=== PATIENT | female | born 1970 | race Caucasian/White ===

== ENCOUNTER 2016-12-27 16:28 | Emergency (ER) | payer OTHER ==
--- NOTE | ~2016-12-27 | CT4 ---
[facility] A Service of [facility] RADIOLOGY TEXT RESULTS PATIENT: MAX CORLEY LOCATION: SED : 72 UNIT #: [id number] AGE: [address]: EZEKIEL MARTI SEX: F ORDER DR: [id number] [address] [address] [id number] E MR#: [id number] Acc #: [id number] NAME: MAX CORLEY : 1970 SEX: F STUDY DATE/TIME: 12/27/2016 18:17 UNIT: SED ROOM: STUDY DESCRIPTION: CT Abd and Pelv Wo Cont Attending Physician: Ezekiel Marti Ordering Physician: Anthony Lawrence M.D. Primary Care Physician: Cr Whitfield M.D. MEDICAL IMAGING REPORT This report is preliminary unless electronic signature is present. EXAM CT scan of the abdomen and pelvis without contrast 12/27/2016 HISTORY Vomiting, diarrhea and cough beginning 1 day ago, chest congestion, fever, short of breath and wheezing. TECHNIQUE Spiral CT was performed through the abdomen and pelvis without oral or intravenous contrast administration as per clinician request. This CT examination was performed with one or more of the following radiation dose reduction techniques: automatic exposure control, adjustment of mA and/or kV according to patient size, and iterative reconstruction. FINDINGS ABDOMEN: The exam is limited by the lack of oral and intravenous contrast. The liver, spleen, pancreas, gallbladder and biliary tree, adrenal glands and kidneys are normal. PELVIS: The gut, mesenteric and gia structures are normal. There is no free fluid in the abdomen or pelvis. Images of the lung bases demonstrate patchy multifocal infiltrates in the left lower lobe characteristic of pneumonia. IMPRESSION 1. Left lower lobe pneumonia. 2. Otherwise negative noncontrast CT of the abdomen and pelvis. Exam is somewhat limited by the lack of oral and intravenous contrast. Dictated by... Ortiz Abbott M.D. [facility] A Service [facility] RADIOLOGY TEXT RESULTS PATIENT: MAX CORLEY LOCATION: SED : 71 UNIT #: [id number] AGE: [address]: EZEKIEL MARTI SEX: F ORDER DR: THIS IS AN ELECTRONICALLY VERIFIED REPORT Ortiz Abbott M.D. at 12/28/2016 2:55 PM PRANEETH/pelon TD: 12/28/2016 07:56 JOB #: [id number] MEDICAL IMAGING REPORT
--- NOTE | ~2016-12-27 | CR63 ---
[facility] A Service of [facility] RADIOLOGY TEXT RESULTS PATIENT: MAX CORLEY LOCATION: SED : 71 UNIT #: [id number] AGE: [address]: EZEKIEL MARTI SEX: F ORDER DR: [id number] [address] [address] [id number] E MR#: [id number] Acc #: [id number] NAME: MAX CORLEY : 1970 SEX: F STUDY DATE/TIME: 12/27/2016 18:06 UNIT: SED ROOM: STUDY DESCRIPTION: CR Chest 2 View Attending Physician: Ezekiel Marti Ordering Physician: Physician Non-Staff Primary Care Physician: Cr Whitfield M.D. MEDICAL IMAGING REPORT This report is preliminary unless electronic signature is present. EXAM Chest, PA and lateral, 12/27/2016. HISTORY Cough beginning 1 day ago, chest congestion, fever, short of breath, wheezing, vomiting, diarrhea. FINDINGS The heart is normal in size status post median sternotomy and valvular replacement. There is airspace consolidation in the lingula and left lower lobe characteristic of pneumonia. Lungs are otherwise clear. There are no pleural effusions. IMPRESSION Infiltrate in the lingula and left lower lobe characteristic of pneumonia. Dictated by... Ortiz Abbott M.D. THIS IS AN ELECTRONICALLY VERIFIED REPORT Ortiz Abbott M.D. at 12/28/2016 2:55 PM KRT/toshia TD: 12/28/2016 07:05 JOB #: [id number] MEDICAL IMAGING REPORT
[~2016-12-27 16:28] MED LIST: ALBUTEROL MININEB NEB; ALBUTEROL17 GM INH; ALBUTEROL2.5 MG/0.5 INH; ALDACTONE25 MG PO; AMBIEN10 MG PO; AMOXICILLIN500 M1 PO; ASPIRIN81 M2 PO; ASPIRIN81 MG PO; BACLOFEN10 MG PO; BACTRIM DS TABL1 TAB PO; BENZONATATE PO; BETAPACE120 M1 PO; BUSPAR15 M1 PO; BUSPAR15 M2 PO; CIPRO PO; CIPRO250 MG PO; CLARITIN10 M2 PO; COMBIVENT U/D3 M2 INH; COUMADIN2.5 MG PO; COUMADIN5 MG PO; EFFEXOR XR150 MG PO; EFFEXOR75 M1 PO; FLEXERIL PO; FLONASE 0.05% N16 G1; FLOVENT DI50 MCG/DIS INH; FUROSEMIDE40 MG PO; GABAPENTIN400 M2 PO; GABAPENTIN400 MG PO; GABAPENTIN800 MG PO; HYDRALAZINE HCL25 MG PO; HYDRALAZINE HCL50 MG PO; HYDROXYZINE HCL25 M1 PO; HYDROXYZINE HCL50 MG PO; IBUPROFEN IB200 M1 PO; IBUPROFEN600 MG PO; JANTOVEN2 MG PO; K-DUR10 MEQ PO; K-DUR20 ME1 PO; K-TAB ER20 MEQ PO; KETOPROFEN PO; LASIX PO; LASIX20 MG PO; LEVAQUIN PO; LISINOPRIL20 MG PO; LOMOTIL TABLET1 TAB PO; LOPRESSOR; LOPRESSOR PO; LORTAB 5/500 TA1 TA1 PO; LOVENOX SUBQ; MEDROL PO; METOPROLOL TAR100 MG PO; METOPROLOL TAR25 MG PO; MINIPRESS1 MG PO; NAPROXEN PO; NEURONTIN PO; NEURONTIN100 MG PO; NEURONTIN600 MG DOB; NO MEDICATIONS; NORCO1 TAB 10/3 DOB; PAIN & FEVER325 MG PO; PERCOCET 5-3251 TAB PO; PERCOCET 51 UDTAB 5/ PO; PHENERGAN PO; PHENERGAN12.5 MG/SU RC; PHENERGAN25 M1 PO; PHENERGAN25 MG PO; PRAZOSIN HCL1 GM PO; PREDNISONE PO; PREDNISONE10 MG PO; PROMETHAZINE D118 ML PO; PROTONIX PO; PROTONIX20 MG PO; PYRIDIUM PO; PYRIDIUM100 MG PO; ROBITUSSIN A-C S5 ML PO; SEROQUEL PO; SEROQUEL XR200 MG DOB; SEROQUEL XR200 MG PO; SEROQUEL50 MG DOB; SEROQUEL50 MG PO; SOTALOL AF80 M1 PO; SYMBICORT INH; ULTRAM PO; VIBRAMYCIN100 M1 PO; VICODIN 5/1 TAB 5/50 PO; VICODIN 5/500 T1 TAB PO; VISTARIL50 MG PO; VITAMIN D1000 UNIT PO; ZANTAC150 MG PO; ZESTRIL10 M1 PO; ZOFRAN PO; ZOLOFT PO; ZOLOFT100 MG PO
[2016-12-27 17:23] LABS: BASOPHIL# 0.1 X10e3 (0-0.3); BASOPHIL% 0.9 % (0-2.5); EOSINOPHIL# 0.6 X10e3 (0-0.7); EOSINOPHIL% 8.3 % (0.0-7.0); HEMATOCRIT 32.7 % (35.0-45.0); HEMOGLOBIN 11.2 gm/dL (12.0-16.0); LYMPHOCYTE# 2.1 X10e3 (1.0-3.5); LYMPHOCYTE% 29.4 % (17.0-45.0); MEAN CORPUSCULAR HEMOGLOBIN 32.5 PG (28-34); MEAN CORPUSCULAR HGB CONC 34.2 g/dL (30-36); MONOCYTE# 0.8 X10e3 (0-1.0); MONOCYTE% 10.6 % (3.0-12.0); NEUTROPHIL# 3.6 X10e3 (1.5-7.1); NEUTROPHIL% 50.8 % (40-75); PLATELET COUNT 261 X10e3 (140-420); RED BLOOD COUNT 3.45 X10e (3.90-5.30); RED CELL DISTRIBUTION WIDTH 15.5 % (11.0-15.5); WHITE BLOOD COUNT 7.1 X10e3 (4.0-10.5)
[2016-12-27 17:45] LABS: ALBUMIN SERUM 4.1 g/dL (3.5-5.0); ALKALINE PHOSPHATASE 95 U/L (32-92); ALT (SGPT) 19 U/L (10-40); AST (SGOT) 21 U/L (10-42); BILIRUBIN,TOTAL 0.3 mg/dL (0.2-2.0); BLOOD UREA NITROGEN 15 mg/dL (9-23); BUN/CREATININE RATIO 16.66; CARBON DIOXIDE 24 mmol/L (22-31); CHLORIDE 103 mmol/L (100-111); CREATININE SERUM 0.9 mg/dL (0.6-1.4); GLOM FILT RATE Estimated ABOVE60 mL/min (>60); GLUCOSE FASTING 93 mg/dL (70-110); LIPASE 29 U/L (22-51); POTASSIUM 3.6 mmol/L (3.5-5.1); PROTEIN TOTAL SERUM 7.2 g/dL (6.0-8.3); SODIUM 137 mmol/L (135-145)
[2016-12-27 17:48] LABS: INFLUENZA A NEG (NEG); INFLUENZA B NEG (NEG)
[2016-12-27 18:00] LABS: DIFF IND NO
[2016-12-27 18:01] LABS: URINE APPEARANCE CLEAR; URINE BILIRUBIN NEG (NEG); URINE BLOOD NEG (NEG); URINE COLOR YELLOW; URINE GLUCOSE NEG (NORM); URINE KETONE NEG (NEG); URINE LEUKOCYTE ESTERASE NEG (NEG); URINE NITRATE NEG (NEG); URINE PH 5.5 (5-8); URINE PROTEIN NEG (NEG); URINE SPECIFIC GRAVITY <=1.005 (1.003-1.035); URINE UROBILINOGEN 0.2 MG/DL (NORM)
[2016-12-27 18:39] LABS: MICRO INDICATED? NO; URINE SOURCE CLEAN CATCH
[2016-12-27 19:03] LABS: PROTHROMBIN TIME (PATIENT) 57.6 SECONDS (9.5-12.4)
== END 2016-12-27 20:24 | disposition home or self-care (01) ==
LOC: SED 16:28
PROVIDERS: Physician Assistant
DX: R10.32 Left lower quadrant pain (principal); J18.9 Pneumonia, unspecified organism; R11.2 Nausea with vomiting, unspecified; R19.7 Diarrhea, unspecified; R79.1 Abnormal coagulation profile; F41.9 Anxiety disorder, unspecified; F32.9 Major depressive disorder, single episode, unspecified; J45.909 Unspecified asthma, uncomplicated; I11.0 Hypertensive heart disease with heart failure; I50.9 Heart failure, unspecified; F17.210 Nicotine dependence, cigarettes, uncomplicated; Z98.51 Tubal ligation status
CPT/HCPCS: 36415; 71020; 74176; 80053; 81003; 83690; 84703; 85025; 85610; 87804; 94640; 96374; 96375; 99284; J0696; J2405

== ENCOUNTER → 2016-12-31 21:10 | Emergency (ER) | payer OTHER ==
[~2016-12-31 21:10] MED LIST changes: +ALBUTEROL 0.5ML INH; +DULERA 200 MCG/13 GM INH; +EFFEXOR75 M3 PO; +HYDROCODON-ACE1 EAC9 PO; +LEVAQUIN750 M1 PO; +LEVAQUIN750 MG PO; +LOVENOX80 MG/0.8 INJ; +MEDROL DOSEPAK4 MG PO; +NON-ASPIRIN 8650 MG PO; +NORVASC PO; +PATIENT'S PHARMACY
== END | disposition left against medical advice (07) ==
LOC: CED 21:10
DX: Z53.21 Procedure and treatment not carried out due to patient leaving prior to being seen by health care provider (principal)
CPT/HCPCS: 84703

== ENCOUNTER 2017-01-01 16:09 | Inpatient (IN) | payer OTHER ==
--- NOTE | ~2017-01-01 | HP ---
Unit #: [id number] #: [id number] Patient: MAX CORLEY [id number] [address] [place], [place] [address] [id number] I MR#: [id number] NAME: MAX CORLEY. ROOM: 312 Age: 46 Sex: F Admission Date: 01/01/2017 : 1970 Attending Physician: Christiano Villalobos M.D. Primary Care Physician: Cr Whitfield M.D. HISTORY AND PHYSICAL HISTORY OF PRESENT ILLNESS The patient is a 46-year-old white female with history of chronic anemia; atrial fibrillation; mitral valve replacement, tissue type; tricuspid regurgitation; left CVA, no residual, following evidence of a mitral valve clot; diastolic dysfunction; major depressive disorder; generalized anxiety disorder; hypertension; lupus anticoagulant antibody syndrome; history of polysubstance abuse; tobacco use. She was recently seen in the emergency room on 12/27/2016 at which time her labs were fairly unremarkable. Her hemoglobin was slightly low but chronic and stable. Beta HCG on the urine was negative. Influenza A and B were negative. Urinalysis was normal. PT/INR was elevated at 5.0. CT scan of the abdomen and pelvis was negative. Chest x-ray showed left lower lobe pneumonia. CMP was normal except for a slightly elevated alkaline phosphatase. The patient was sent home on Omnicef but did not improve. Her main complaint was shortness of air and cough. She presented back to the emergency room on 01/01/2017 for same. Workup there, she had a low grade temperature at 99.1. She was not tachycardic. Room air O2 saturation was 98%. Followup chest x-ray showed improving left upper lobe pneumonia. CBC again was normal except for a hemoglobin at 11.3. Cardiac enzymes were normal. Alkaline phosphatase 95. Coags were normal. EKG showed an ectopic atrial rhythm and a prolonged QT interval and she was admitted. She accidentally was admitted to the wrong physician overnight. I was notified after 10 a.m. this morning, already in the office seeing patients. Came back this evening to see the patient. She is already improving. She has been started on some IV fluids, IV Levaquin, IV Solu-Medrol, mini nebs, Lovenox because her INR was low. She was started back on her home medications which will be mentioned below and, again, she seems to be improving and is requesting discharge soon. PAST MEDICAL HISTORY 1. Chronic atrial fibrillation. 2. Mitral valve replacement. 3. Tricuspid regurgitation. 4. 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 5. Chronic anticoagulation therapy. 6. Diastolic dysfunction. 7. Major depressive disorder. 8. Generalized anxiety disorder. 9. Hypertension. 10. Polysubstance abuse in the past. 11. Lupus anticoagulant antibody syndrome. PAST SURGICAL HISTORY Unit #: [id number] #: [id number] Patient: MAX CORLEY 1. Tubal ligation. 2. Tissue mitral valve replacement. HOME MEDICATIONS 1. Coumadin 2.5 mg every other day. Followed by Dr. Alvarado, local media associate with widely fluctuating pro times according to the patient. 2. Lasix 20 mg daily. 3. K-Dur 10 mEq daily. 4. Neurontin 800 mg q.i.d. 5. Metoprolol tartrate 100 mg daily. 6. Seroquel XL 200 mg h.s. 7. Effexor 75 mg daily. ALLERGIES Amoxicillin. SOCIAL HISTORY She smokes 1-3 cigarettes daily. Drinks no alcohol. Currently uses no street drugs. FAMILY HISTORY Noncontributory. PHYSICAL EXAMINATION VITAL SIGNS: Afebrile since that 99.1 on admission, pulse 96, respirations 18, blood pressure 116/59, room air O2 saturation currently 96%. GENERAL: She is awake, alert, oriented x3. No acute distress. HEENT: Unremarkable. NECK: Supple without JVD, bruits, adenopathy, or thyromegaly. LUNGS: Decreased breath sounds. Rhonchi left upper lobe area. Expiratory wheezes. HEART: Irregularly irregular without an S3 gallop or murmur appreciated. ABDOMEN: Large, soft, nondistended, nontender with positive bowel sounds and no hepatosplenomegaly. EXTREMITIES: No clubbing, cyanosis, or edema. GENITOURINARY: Deferred. RECTAL: Deferred. NEUROLOGIC: Grossly intact. DIAGNOSTIC STUDIES LABORATORY: CBC normal except for hemoglobin of 11.3 with normal indices. Cardiac enzymes normal. CMP normal except for an alkaline phosphatase of 95. PT and PTT within normal limits. IMAGING: Chest x-ray, as above, improving left upper lobe pneumonia. CARDIOVASCULAR: EKG ectopic atrial rhythm, prolonged QT interval. IMPRESSION 1. Improving left upper lobe community-acquired pneumonia. 2. Subtherapeutic pro time. 3. Status post tissue mitral valve replacement. 4. Severe tricuspid regurgitation. 5. History of mitral valve thrombus with left cerebrovascular accident with no residual. 6. Chronic atrial fibrillation. Unit #: [id number] #: [id number] Patient: MAX CORLEY 7. Diastolic dysfunction. 8. Hypertension. 9. Tobacco use. 10. Chronic anemia. 11. Generalized anxiety disorder. 12. Major depressive disorder. PLAN 1. Continue IV Levaquin, IV steroids, Lovenox. 2. Daily pro times. 3. Mini nebs. Hopefully she can be discharged home soon on p.o. antibiotics, p.o. steroids and possibly with Lovenox bridging because of her subtherapeutic pro time particularly given her history of the left CVA related to the mitral valve thrombus and her history of lupus anticoagulant antibody syndrome. Dictated by Christiano Villalobos M.D. STEVIE/dale TD: 01/02/2017 16:48 JOB #: [id number] HISTORY AND PHYSICAL X Christiano Villalobos MD HISTORY AND PHYSICAL
--- NOTE | ~2017-01-01 | DS ---
Unit #: [id number] #: [id number] Patient: MAX CORLEY [id number] [address] [address] [id number] I MR#: [id number] NAME: MAX CORLEY. ROOM: 312 Age: 46 Sex: F Admission Date: 01/01/2017 : 1970 Discharge Date: 01/03/2017 Attending Physician: Christiano Villalobos M.D. Primary Care Physician: Cr Whitfield M.D. DISCHARGE SUMMARY PRINCIPAL DISCHARGE DIAGNOSES 1. Left upper lobe community-acquired pneumonia. 2. Subtherapeutic pro time. 3. Status post tissue mitral valve replacement. 4. Paroxysmal atrial fibrillation. 5. Severe tricuspid regurgitation. 6. Diastolic dysfunction. 7. Hypertension. 8. Lupus anticoagulant antibody syndrome. 9. Tobacco abuse. 10. Chronic anemia. 11. Status post left cerebrovascular accident. 12. Major depressive disorder. 13. Generalized anxiety disorder. PROCEDURES None. CONSULTANTS None. REASON FOR HOSPITALIZATION The patient is a 46-year-old white female with a history of mitral valve replacement, tissue type, chronic anticoagulation therapy, lupus anticoagulant antibody syndrome, tobacco use, major depressive disorder, old CVA on the left without any residual, chronic anemia, presented to the emergency room on the with cough, congestion, fever. She was seen at that time. Flu swab was negative. White count was normal. Chest x-ray revealed an infiltrate in the left lower lobe. She was started on Omnicef, but re-presented on the due to cough, stating she was no better. In the ER, she was afebrile. Vital signs were stable. Room air O2 saturation was 98%. She was given Solu-Medrol, IV Levaquin and admitted. The patient is rapidly improving while here. Her room air O2 sats were normal. Her vital signs were stable. She has no significant cough at this point, and just with a brief period of IV steroids and mini nebs, she has markedly improved, requesting discharge. Her pro time was still pending this morning, yesterday was subtherapeutic and she was given an additional dose. She has used Lovenox in the past and is given a prescription in case she needs it today. Following her pro time results, she will be discharged home. She has albuterol nebulizer at home that she will use q.i.d. Given her a prescription for Levaquin 750 mg daily for an additional 8 days. Medrol Dosepak use as directed. She will resume her home medicines otherwise, Coumadin 2.5 mg every other day, Neurontin Unit #: [id number] #: [id number] Patient: FLUHR,MAX M 800 mg q.i.d., Effexor 75 mg daily, Seroquel XR 200 mg q.h.s., Lopressor 100 mg daily, Lasix 20 mg daily, K-Dur 10 mEq daily. Again, she is given a prescription for Lovenox 80 mg subcu q.12 hours if her pro time is less than 2. She will follow up with Dr. Whitfield in the office. She will need to have a pro time in about [address] Alvarado, her icer hand, with adjustments made at that time. She is encouraged to discontinue her tobacco use. She will be on a regular diet as tolerated. Dictated by... Christiano Villalobos M.D. STEVIE/maurice TD: 01/04/2017 02:38 JOB #: [id number] DISCHARGE SUMMARY X Christiano Villaolbos MD X DISCHARGE SUMMARY
--- NOTE | ~2017-01-01 | CR72 ---
[facility] A Service of [facility] RADIOLOGY TEXT RESULTS PATIENT: MAX CORLEY LOCATION: [facility] : [birth year] UNIT #: [id number] AGE: [address]: Shirin Parra MD SEX: F ORDER DR: [id number] [facility] [address]. [place], [place] [address] [id number] I MR#: [id number] Acc #: [id number] NAME: MAX CORLEY. : 1970 SEX: F STUDY DATE/TIME: 01/01/2017 15:45 UNIT: [address] ROOM: [facility] STUDY DESCRIPTION: CR Chest Single View Portable Attending Physician: Shirin Parra M.D. Ordering Physician: Memo Beatty M.D. Primary Care Physician: Cr Whitfield M.D. MEDICAL IMAGING REPORT This report is preliminary unless electronic signature is present EXAM Frontal chest 01/01/2017 INDICATIONS 46-year-old female with shortness of air. Recent pneumonia, cough symptoms 5 days. TECHNIQUE Frontal chest was performed. COMPARISON 12/27/2016 FINDINGS Postop changes median sternotomy present. Cardiac silhouette stable. Vascularity is normal. Right lung is clear. There is partial obscuration of the left heart border most characteristic of lingular pneumonia. Findings are slightly improved compared to the prior study. No pneumothorax. No effusion. IMPRESSION Slight interval improvement in pneumonia involving the lingular segment left upper lobe and to a lesser extent the left lower lobe. No new effusion or other significant change. Dictated by... Jakub Faustin M.D. THIS IS AN ELECTRONICALLY VERIFIED REPORT Jakub Faustin M.D. at 01/02/2017 7:27 AM Aris TD: 01/02/2017 06:19 [facility] A Service [facility] RADIOLOGY TEXT RESULTS PATIENT: MAX CORLEY LOCATION: [facility] : [birth year] UNIT #: [id number] AGE: [address]: Shirin Parra MD SEX: F ORDER DR: JOB #: [id number] MEDICAL IMAGING REPORT COPY
--- NOTE | ~2017-01-01 | EKG ---
PATIENT: MAX CORLEY UNIT #: [id number] Ventricular Rate: 90 BPM Atrial Rate: 90 BPM P-R Interval: 244 ms QRS Duration: 80 ms Q-T Interval: 394 ms QTC Calculation(Bezet): 481 ms P [place]: -79 degrees Calculated R [place]: 52 degrees Calculated T [place]: 52 degrees Diagnosis Line: Unusual P axis, possible ectopic atrial rhythm Diagnosis Line: Prolonged QT Diagnosis Line: Abnormal ECG Diagnosis Line: When compared with ECG of 20-SEP-2016 08:54, Diagnosis Line: Ectopic atrial rhythm has replaced Sinus rhythm Diagnosis Line: Nonspecific T wave abnormality no longer evident Diagnosis Line: in Lateral leads Diagnosis Line: Confirmed by JIGNA HORAN MD ([id number]) on Diagnosis Line: 01/02/2017 11:24:46 AM INTERPRETING MD: AUNG HAMILTON
[~2017-01-01 16:09] MED LIST changes: -ALBUTEROL 0.5ML INH; -DULERA 200 MCG/13 GM INH; -EFFEXOR75 M3 PO; -HYDROCODON-ACE1 EAC9 PO; -LEVAQUIN750 M1 PO; -LEVAQUIN750 MG PO; -LOVENOX80 MG/0.8 INJ; -MEDROL DOSEPAK4 MG PO; -NON-ASPIRIN 8650 MG PO; -NORVASC PO; -PATIENT'S PHARMACY
[2017-01-01 16:16] LABS: BASOPHIL# 0.1 X10e3 (0-0.3); BASOPHIL% 0.8 % (0-2.5); EOSINOPHIL# 0.8 X10e3 (0-0.7); EOSINOPHIL% 7.9 % (0.0-7.0); HEMATOCRIT 33.5 % (35.0-45.0); HEMOGLOBIN 11.3 gm/dL (12.0-16.0); LYMPHOCYTE# 2.2 X10e3 (1.0-3.5); LYMPHOCYTE% 23.2 % (17.0-45.0); MEAN CELL VOLUME 94.9 FL (83-96); MEAN CORPUSCULAR HEMOGLOBIN 31.9 PG (28-34); MEAN CORPUSCULAR HGB CONC 33.7 g/dL (30-36); MEAN PLATELET VOLUME 6.9 FL (6.5-11.5); MONOCYTE# 0.9 X10e3 (0-1.0); MONOCYTE% 9.7 % (3.0-12.0); NEUTROPHIL# 5.6 X10e3 (1.5-7.1); NEUTROPHIL% 58.4 % (40-75); PLATELET COUNT 333 X10e3 (140-420); RED BLOOD COUNT 3.53 X10e (3.90-5.30); RED CELL DISTRIBUTION WIDTH 15.3 % (11.0-15.5); WHITE BLOOD COUNT 9.5 X10e3 (4.0-10.5)
[2017-01-01 16:17] LABS: DIFF IND NO
[2017-01-01 16:22] LABS: POC - CKMB <1.0 ng/mL (0.0-7.9); POC - TROPONIN <0.05 ng/mL (<=0.05)
[2017-01-01 16:53] LABS: ALBUMIN SERUM 3.9 g/dL (3.5-5.0); ALKALINE PHOSPHATASE 95 U/L (32-92); ALT (SGPT) 15 U/L (10-40); AST (SGOT) 18 U/L (10-42); BILIRUBIN,TOTAL 0.5 mg/dL (0.2-2.0); BLOOD UREA NITROGEN 12 mg/dL (9-23); CARBON DIOXIDE 29 mmol/L (22-31); CHLORIDE 101 mmol/L (100-111); CREATININE SERUM 0.6 mg/dL (0.6-1.4); GLOM FILT RATE Estimated ABOVE60 mL/min (>60); GLUCOSE FASTING 92 mg/dL (70-110); POTASSIUM 3.5 mmol/L (3.5-5.1); PROTEIN TOTAL SERUM 6.9 g/dL (6.0-8.3); SODIUM 140 mmol/L (135-145)
[2017-01-01 16:54] LABS: BILIRUBIN, DIRECT <0.1 mg/dL (0.0-0.2); BILIRUBIN,INDIRECT 0.4 mg/dL (0.0-0.9); PARTIAL THROMBOPLASTIN TIME 30.1 SECONDS (23.5-31.3)
[2017-01-01 16:58] LABS: PROTHROMBIN TIME (PATIENT) 10.9 SECONDS (9.6-11.5)
[2017-01-01] MEDS ORDERED: METOPROLOL TAR100 MG PO (17:07)
[2017-01-01] MEDS ORDERED: SEROQUEL XR200 MG PO (17:08)
[2017-01-01] MEDS ORDERED: EFFEXOR75 M3 PO (17:13)
[2017-01-02 09:14] LABS: INR 1.1; PROTHROMBIN TIME (PATIENT) 11.4 SECONDS (9.6-11.5)
[2017-01-03 09:47] LABS: INR 1.3; PROTHROMBIN TIME (PATIENT) 14.2 SECONDS (9.6-11.5)
[2017-01-03] MEDS ORDERED: LOVENOX80 MG/0.8 INJ (10:39)
[2017-01-03] MEDS ORDERED: LEVAQUIN750 M1 PO (10:40)
[2017-01-03] MEDS ORDERED: ALBUTEROL 0.5ML INH (10:40)
[2017-01-03] MEDS ORDERED: MEDROL DOSEPAK4 MG PO (10:40)
== END 2017-01-03 11:22 | disposition home or self-care (01) | DRG 194 ==
LOC: CED 16:09 → CEDOF 17:35 → C3A PCU 19:46
PROVIDERS: Emergency Medicine; Internal Medicine; Physician Assistant Medical
DX: J18.9 Pneumonia, unspecified organism (principal); I50.30 Unspecified diastolic (congestive) heart failure; D68.62 Lupus anticoagulant syndrome; I11.0 Hypertensive heart disease with heart failure; I48.0 Paroxysmal atrial fibrillation; I36.1 Nonrheumatic tricuspid (valve) insufficiency; F17.210 Nicotine dependence, cigarettes, uncomplicated; Z79.01 Long term (current) use of anticoagulants; Z95.3 Presence of xenogenic heart valve; D53.9 Nutritional anemia, unspecified; F32.9 Major depressive disorder, single episode, unspecified; F41.1 Generalized anxiety disorder; Z86.73 Personal history of transient ischemic attack (TIA), and cerebral infarction without residual deficits; Z98.51 Tubal ligation status
CPT/HCPCS: 36415; 71010; 80048; 80076; 82553; 84484; 85025; 85610; 85730; 87040; 93005; 94640; 94760; 96374; 96375; 99285; J1650; J1885; J1956; J2765; J2920; J2930

== ENCOUNTER 2017-01-26 19:00 | Emergency (ER) | payer OTHER ==
--- NOTE | ~2017-01-26 | US85 ---
[facility] A Service of [facility] RADIOLOGY TEXT RESULTS PATIENT: MAX CORLEY LOCATION: [facility] : 71 UNIT #: [id number] AGE: [address]: Jose Dior MD SEX: F ORDER DR: [id number] [facility] [address] [place], [place] [address] [id number] E MR#: [id number] Acc #: [id number] NAME: MAX CORLEY. : 1970 SEX: F STUDY DATE/TIME: 01/26/2017 19:34 UNIT: [facility] ROOM: STUDY DESCRIPTION: LE Veins Unilat or Ltd Stdy Attending Physician: Jose Dior M.D. Ordering Physician: Jimmy Wyman M.D. Primary Care Physician: Cr Whitfield M.D. MEDICAL IMAGING REPORT This report is preliminary unless electronic signature is present EXAM Right lower extremity venous duplex. DATE OF EXAM 01/26/2017 HISTORY Right lower extremity pain for 1 day. Evaluate for deep vein thrombosis. TECHNIQUE Venous ultrasound examination of the right lower extremity was performed using grayscale, spectral Doppler and color flow Doppler imaging. FINDINGS The examination is negative. There is no evidence of right lower extremity deep venous thrombus from the groin to the lower calf. Visualized greater saphenous vein is also patent. IMPRESSION Negative examination. No evidence of right lower extremity DVT. Dictated by... Ortiz Abbott M.D. THIS IS AN ELECTRONICALLY VERIFIED REPORT Ortiz Abbott M.D. at 01/27/2017 1:14 PM KRT/bre TD: 01/26/2017 23:01 [facility] A Service of [facility] RADIOLOGY TEXT RESULTS PATIENT: MAX CORLEY LOCATION: [facility] : 71 UNIT #: [id number] AGE: [address]: Jose Dior MD SEX: F ORDER DR: JOB #: [id number] MEDICAL IMAGING REPORT Page 1 of 1 COPY
--- NOTE | ~2017-01-26 | CR127 ---
[facility] A Service of [facility] RADIOLOGY TEXT RESULTS PATIENT: MAX CORLEY LOCATION: [facility] : [birth year] UNIT #: [id number] AGE: [address]: Jose Dior MD SEX: F ORDER DR: [id number] [facility] [address] [place], [place] [address] [id number] E MR#: [id number] Acc #: [id number] NAME: MAX CORLEY : 1970 SEX: F STUDY DATE/TIME: 01/26/2017 19:14 UNIT: [facility] ROOM: STUDY DESCRIPTION: CR Foot Complete Min 3 View Rt Attending Physician: Jose Dior M.D. Ordering Physician: Jose Dior M.D. Primary Care Physician: Cr Whitfield M.D. MEDICAL IMAGING REPORT This report is preliminary unless electronic signature is present EXAM Right foot 3 views 01/26/2017 HISTORY Right foot pain status post fall today. FINDINGS The tarsal, metatarsal, and phalangeal elements are all anatomically normal in position and alignment. There are no articular defects. No fractures or radiopaque foreign bodies in the soft tissues are apparent. IMPRESSION Normal foot. Dictated by... Ortiz Abbott M.D. THIS IS AN ELECTRONICALLY VERIFIED REPORT Ortiz Abbott M.D. at 01/27/2017 1:14 PM KRT/norris TD: 01/26/2017 23:02 JOB #: [id number] MEDICAL IMAGING REPORT Page 1 of 1 COPY
--- NOTE | ~2017-01-26 | CR253 ---
[facility] A Service of [facility] RADIOLOGY TEXT RESULTS PATIENT: MAX CORLEY LOCATION: [facility] : 72 UNIT #: [id number] AGE: [address]: Jose Dior MD SEX: F ORDER DR: [id number] [facility] [address] [place], [place] [address] [id number] E MR#: [id number] Acc #: [id number] NAME: MAX CORLEY. : 1970 SEX: F STUDY DATE/TIME: 01/26/2017 19:21 UNIT: [facility] ROOM: STUDY DESCRIPTION: CR Tibia and Fibula 2 Views Rt Attending Physician: Jose Dior M.D. Ordering Physician: Jose Dior M.D. Primary Care Physician: Cr Whitfield M.D. MEDICAL IMAGING REPORT This report is preliminary unless electronic signature is present EXAM Right tibia-fibula AP and lateral HISTORY Leg pain after fall today. FINDINGS 2 views of the right tibia and fibula demonstrate oblique fracture through the proximal right fibular shaft centered 6 cm distal to the fibular head with 3 mm relative anterior displacement of the distal fracture fragment. No significant fracture angulation. There is also a nondisplaced coronal fracture through the posterior malleolus. Soft tissue swelling over the lateral malleolus. Dictated by... Jaun Galvan M.D. THIS IS AN ELECTRONICALLY VERIFIED REPORT Jaun Galvan M.D. at 01/26/2017 11:26 PM DFL/norris TD: 01/26/2017 23:06 JOB #: [id number] MEDICAL IMAGING REPORT Page 1 of 1 COPY
[~2017-01-26 19:00] MED LIST changes: +ALBUTEROL 0.5ML INH; +EFFEXOR75 M3 PO; +LEVAQUIN750 M1 PO; +LOVENOX80 MG/0.8 INJ; +MEDROL DOSEPAK4 MG PO
[2017-01-26 20:39] LABS: BASOPHIL# 0.1 X10e3 (0-0.3); BASOPHIL% 0.9 % (0-2.5); EOSINOPHIL# 0.4 X10e3 (0-0.7); EOSINOPHIL% 3.7 % (0.0-7.0); HEMATOCRIT 37.8 % (35.0-45.0); HEMOGLOBIN 12.7 gm/dL (12.0-16.0); LYMPHOCYTE# 2.5 X10e3 (1.0-3.5); LYMPHOCYTE% 24.6 % (17.0-45.0); MEAN CELL VOLUME 94.7 FL (83-96); MEAN CORPUSCULAR HEMOGLOBIN 31.8 PG (28-34); MEAN CORPUSCULAR HGB CONC 33.5 g/dL (30-36); MONOCYTE# 1.1 X10e3 (0-1.0); MONOCYTE% 11.1 % (3.0-12.0); NEUTROPHIL% 59.7 % (40-75); PLATELET COUNT 298 X10e3 (140-420)
[2017-01-26 20:40] LABS: DIFF IND NO
[2017-01-26 20:58] LABS: INR 1.3; PARTIAL THROMBOPLASTIN TIME 35.3 SECONDS (23.5-31.3)
[2017-01-26 21:04] LABS: BUN/CREATININE RATIO 17.5; CALCIUM SERUM 9.5 mg/dL (8.4-10.2); CREATININE SERUM 0.8 mg/dL (0.6-1.4); GLOM FILT RATE Estimated 89.1 mL/min (>60); POTASSIUM 3.5 mmol/L (3.5-5.1)
== END 2017-01-26 21:29 | disposition home or self-care (01) ==
LOC: CED 19:00
PROVIDERS: Emergency Medicine
DX: M79.661 Pain in right lower leg (principal); Z86.718 Personal history of other venous thrombosis and embolism; F17.200 Nicotine dependence, unspecified, uncomplicated; Z79.01 Long term (current) use of anticoagulants; Z88.1 Allergy status to other antibiotic agents
CPT/HCPCS: 29505; 73590; 73630; 80048; 85025; 85610; 85730; 93971; 99284

== ENCOUNTER 2017-03-22 09:24 | Inpatient (IN) | payer OTHER ==
--- NOTE | ~2017-03-22 | EKG ---
PATIENT: MAX CORLEY UNIT #: [id number] Ventricular Rate: 128 BPM Atrial Rate: 128 BPM P-R Interval: 224 ms QRS Duration: 80 ms Q-T Interval: 292 ms QTC Calculation(Bezet): 426 ms Calculated R [place]: 40 degrees Calculated T [place]: -86 degrees Diagnosis Line: Unusual P axis, possible ectopic atrial Diagnosis Line: tachycardia Diagnosis Line: ST and T wave abnormality, consider lateral ischemia Diagnosis Line: Abnormal ECG Diagnosis Line: When compared with ECG of 01-JAN-2017 15:39, Diagnosis Line: ST now depressed in Inferior leads Diagnosis Line: T wave inversion now evident in Inferior leads Diagnosis Line: T wave inversion now evident in Lateral leads Diagnosis Line: Confirmed by RAVEN GARCIA MD ([id number]) on Diagnosis Line: 03/23/2017 1:40:13 PM INTERPRETING MD: BLACK
--- NOTE | ~2017-03-22 | CT16 ---
[facility] A Service of [facility] RADIOLOGY TEXT RESULTS PATIENT: MAX CORLEY LOCATION: [facility] [id number] : 71 UNIT #: [id number] AGE: [address]: Christiano Villalobos MD SEX: F ORDER DR: [id number] [facility] [address] [place], [place] [address] [id number] I MR#: [id number] Acc #: [id number] NAME: MAX CORLEY. : 1970 SEX: F STUDY DATE/TIME: 03/22/2017 12:08 UNIT: [facility] ROOM: [id number] STUDY DESCRIPTION: CT Angio Chest for PE Attending Physician: Christiano Villalobos M.D. Ordering Physician: Ashok Salinas M.D. Primary Care Physician: Cr Whitfield M.D. MEDICAL IMAGING REPORT This report is preliminary unless electronic signature is present EXAM CT scan of the chest with pulmonary embolus protocol INDICATION Cough, congestion, shortness of air for 3 days. COMPARISON STUDIES 10/10/2015 TECHNIQUE The patient was given 80 mL of Isovue 370 and spiral imaging was performed through the chest. 3-D reconstructions of the pulmonary arteries were generated. This CT exam was performed with one or more of the following radiation dose reduction techniques: automatic exposure control, adjustment of mA and/or kV according to patient size, and iterative reconstruction. FINDINGS There are small patchy ground glass infiltrates at multiple sites in the upper lobes. These measure up to about 18 mm in the AP dimension, 3 cm in width. There are at least 10 areas involved. There is minimal atelectasis in the lung bases and the right middle lobe. Almost all of these are new from 2015. The thyroid gland is normal. There is mild narrowing of the brachiocephalic artery near its origin with about a 50% narrowing and there is mild narrowing of the proximal left subclavian artery as well. It is difficult to tell if these findings were present 10/10/2015 because of some motion in this region but I believe that the narrowing's are new. There is adequate opacification of the pulmonary arteries and there is no CT evidence of pulmonary embolus. Sternotomy wires are present. There is no mediastinal or hilar adenopathy. [facility] A Service of [facility] RADIOLOGY TEXT RESULTS PATIENT: MAX CORLEY LOCATION: [facility] [id number] : [birth year] UNIT #: [id number] AGE: [address]: Christiano Villalobos MD SEX: F ORDER DR: IMPRESSION 1. There are multiple faint patchy ground glass infiltrates in the upper lobes almost all of which are new from 10/10/2015 suggesting some type of allergic response or inflammation or infection. 2. There is no CT evidence of pulmonary embolus or aortic dissection. 3. On today's study there is clearly some circumferential narrowing of the proximal portions of the brachiocephalic artery and left subclavian artery causing up to a 50% diameter stenosis of the brachiocephalic artery and subclavian artery and this appears to be new from 10/10/2015 although there was some motion on that study. 4. The patient also has a CT scan from 07/02/2015 and that showed multiple ground glass infiltrates of more extensive nature. The vascular narrowing was not visible on that exam, either. Dictated by... Markus Mei M.D. THIS IS AN ELECTRONICALLY VERIFIED REPORT Markus Mei M.D. at 03/22/2017 5:02 PM Ron TD: 03/22/2017 16:28 JOB #: [id number] MEDICAL IMAGING REPORT Page 1 of 1 COPY
--- NOTE | ~2017-03-22 | DS ---
Unit #: [id number] #: [id number] Patient: MAX CORLEY [id number] [address] [address] [id number] I MR#: [id number] NAME: MAX CORLEY. ROOM: 575 Age: 46 Sex: F Admission Date: 03/22/2017 : 1970 Discharge Date: 03/26/2017 Attending Physician: Christiano Villalobos M.D. Primary Care Physician: Cr Whitfield M.D. DISCHARGE SUMMARY PRINCIPAL DISCHARGE DIAGNOSES 1. Bilateral upper lobe community acquired pneumonia. 2. Tobacco use. 3. Status post mitral valve replacement tissue type. 4. Lupus anticoagulant antibody syndrome. 5. Subtherapeutic ProTime. 6. Major depressive disorder. 7. Generalized anxiety disorder. 8. Paroxysmal atrial fibrillation. 9. Renal insufficiency. 10. Hyperglycemia. 11. Right foot fracture. 12. Polysubstance abuse. 13. Tricuspid regurgitation. 14. Old left cerebrovascular accident. PROCEDURES None. CONSULTANTS Dr. Rodriguez from pulmonary services. REASON FOR HOSPITALIZATION Patient is a 46-year-old white female with a history of tissue mitral valve replacement, lupus anticoagulant antibody syndrome, chronic anticoagulation therapy, tobacco use, major depressive disorder, generalized anxiety disorder, recent fracture of right foot, presents in the emergency room with three days of cough, shortness of air and congestion, abnormal, and normal white count. Chest x-ray negative. CT scan PE protocol showed no PE but bilateral upper lobe infiltrates and the patient was admitted. HOSPITAL COURSE The patient was admitted and she was started on Lovenox. Because her ProTime was subtherapeutic she was started on Levaquin. Additional labs were sent. On admission her lactic acid was normal. GFR was 54. Lasix was held. Urine drug screen was positive for marijuana, opiates and TCAs. Procalcitonin was 1.64. Urine for Legionella and Streptococcal antigens were negative. Patient rapidly improved. Blood cultures were negative. Urinalysis showed 1% blood but CPK was normal and culture not reported. Because hyperglycemic treated with sliding scale insulin and A1c was borderline at 6.0%. Followup chest x-ray showed no active disease. Protimes are still subtherapeutic, this morning's is pending and we checked prior to discharge but the patient is in a regular rhythm and can Unit #: [id number] #: [id number] Patient: MAX CORLEY be discharged home with outpatient followup. She is currently on a regular diet as tolerated. DISCHARGE MEDICATIONS 1. She is on potassium 20 mEq daily. 2. [place] 7.5/325 one q.8 hours p.r.n. for pain. 3. Zantac 150 mg b.i.d. 4. Lasix 20 mg daily. 5. Metoprolol 100 mg b.i.d. 6. Hydroxyzine 50 mg t.i.d. 7. Seroquel XR 200 mg p.o. q.h.s. 8. Effexor 75 mg daily. 9. Neurontin 600 mg t.i.d. 10. Coumadin 2.5 mg daily. 11. She was given a prescription for Combivent Respimat 1 puff q.i.d. p.r.n. 12. Prednisone 40 mg for two days, 30 mg for two days, 10 mg for two days, and then discontinue. 13. Tylenol 650 p.o. q.6 p.r.n. 14. Dulera 200/5 two puffs q.12. 15. Norvasc 5 mg p.o. daily. 16. Levaquin 750 mg p.o. daily for an additional 6 days. FOLLOWUP Please note, she will followup with Dr. Whitfield in one week with a ProTime. Dictated by... Christiano Villaolbos M.D. STEVIE/kimberly TD: 03/26/2017 12:50 JOB #: [id number] DISCHARGE SUMMARY Page 1 of 1 X Christiano Villalobos MD X DISCHARGE SUMMARY
--- NOTE | ~2017-03-22 | CR63 ---
[facility] A Service of [facility] & [facility] RADIOLOGY TEXT RESULTS PATIENT: MAX CORLEY LOCATION: [facility] 575-01 : [birth year] UNIT #: [id number] AGE: [address]: Christiano Villalobos MD SEX: F ORDER DR: [id number] [facility] [address] [place], [place] [address] [id number] I MR#: [id number] Acc #: [id number] NAME: MAX CORLEY : 1970 SEX: F STUDY DATE/TIME: 03/25/2017 UNIT: [facility] ROOM: [facility] STUDY DESCRIPTION: CR Chest 2 View Attending Physician: Christiano Villalobos M.D. Ordering Physician: Christiano Villalobos M.D. Primary Care Physician: Cr Whitfield M.D. MEDICAL IMAGING REPORT This report is preliminary unless electronic signature is present EXAM Chest 2 views 03/25/2017 0842 hours HISTORY 46-year-old woman with cough, wheezing and shortness of air for [address] chest and portable chest film 03/22/2017 FINDINGS Upright PA and lateral views of the chest demonstrate median sternotomy change with valve replacement. Cardiac, mediastinal and hilar contours are normal. Lungs appear clear. There are no effusions. Ground-glass opacities seen on CT 03/22/2017 are not detectable on plain film. IMPRESSION Median sternotomy and valve surgical changes. No acute cardiopulmonary findings. The ground-glass opacities seen on recent CT 03/22/2017 are not detected on plain film. Dictated by... Soumya Jesus M.D. THIS IS AN ELECTRONICALLY VERIFIED REPORT Soumya Jesus M.D. at 03/25/2017 2:29 PM SMM/paulo TD: 03/25/2017 10:56 JOB #: [id number] MEDICAL IMAGING REPORT Page 1 of 1 COPY
--- NOTE | ~2017-03-22 | HP ---
Unit #: [id number] #: [id number] Patient: MAX CORLEY [id number] [address] [place], [place] [address] [id number] I MR#: [id number] NAME: MAX CORLEY. ROOM: 97460 Age: 46 Sex: F Admission Date: 03/22/2017 : 1970 Attending Physician: Christiano Villalobos M.D. Primary Care Physician: Cr Whitfield M.D. HISTORY AND PHYSICAL HISTORY OF PRESENT ILLNESS A 46-year-old white female with a history of tissue mitral valve replacement, lupus anticoagulant antibodies syndrome, chronic anticoagulation therapy, tobacco use, major depressive disorder, generalized anxiety disorder, recent fracture of her right foot, in a removable boot cast, presents to the emergency room with three days of shortness of air, cough, congestion. She was afebrile, at her normal white count. Chest x-ray was negative. CT scan PE protocol was obtained and no PE was seen but they did note, apparently per the physician in the ER, nztjya-heffa-yeaxjiouk apical infiltrates and the patient is admitted for same. She has had some intermittent nausea and vomiting which she relates to the severe amount of secretions she has had. She has no urinary or bowel symptoms and has no other complaints at this time. ALLERGIES Amoxicillin. HOME MEDICATIONS Her meds prior to admission: 1. Coumadin 2.5 mg daily. 2. Lasix 20 mg daily. 3. K-Dur 20 mEq daily. 4. Neurontin 600 mg t.i.d. 5. Metoprolol tartrate 100 mg b.i.d. 6. Seroquel XR 200 mg q.h.s. 7. Effexor 75 mg daily. 8. [place] 7.5/325 one q.8 h. p.r.n. 9. Vistaril 50 mg t.i.d. 10. Zantac 150 mg b.i.d. 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 PAST SURGICAL HISTORY Tubal ligation, tissue mitral valve replacement. SOCIAL HISTORY Smokes three cigarettes daily, no alcohol use, denies street drug use. Unit #: [id number] #: [id number] Patient: MAX CORLEY FAMILY HISTORY Family history is noncontributory. PHYSICAL EXAMINATION GENERAL APPEARANCE: She is awake, alert, oriented x3, in no acute distress. VITAL SIGNS: Afebrile, pulse 110, respirations 18, blood pressure 91/56, room air O2 sat 96%. HEENT: Unremarkable except for O2 cannula in place. NECK: Supple, without JVD, bruits, adenopathy or thyromegaly. CHEST: Clear to auscultation. HEART: Regular and tachy, without an S3 gallop or murmur appreciated. ABDOMEN: Abdomen is soft, nondistended, nontender, with positive bowel sounds and no hepatosplenomegaly. EXTREMITIES: Showed no cyanosis, clubbing or edema. Again, her right foot and ankle are in a cast. GENITOURINARY: Deferred. ANO-RECTAL: Deferred. NEUROLOGIC: Exam is grossly intact. DIAGNOSTIC STUDIES CARDIOVASCULAR: EKG appears to be sinus tachycardia with first-degree AV block. Nonspecific ST and T abnormality in the inferolateral leads. LABORATORY VALUES: Cardiac enzymes normal x2 sets. CBC within normal limits. PT/INR 1.0, PTT 31.7, BNP 133, lactic acid 1.1. CMP normal except for a GFR of 54 and an alkaline phosphatase of 124. Urine drug screen positive for marijuana, opiates and TCAs. Obviously the only one she has a prescription for is the opiates. Procalcitonin level is 1.64. IMAGING: Chest x-ray no active disease. CT scan as mentioned above. ASSESSMENT 1. Note the patient was discharged here 01/03/17 with community-acquired pneumonia so I am not sure whether this is a hospital acquired pneumonia or not but given her normal temperature and normal O2 sat and normal white count and lack of severity of illness it appears to be more of a community-acquired pneumonia. I any case the patient is being admitted for typical bilateral upper lobe infiltrates, hospital-acquired versus community-acquired pneumonia. 2. Tobacco use. 3. Mitral valve replacement. 4. Lupus anticoagulant syndrome. 5. Subtherapeutic ProTime. 6. Major depressive disorder. 7. Generalized anxiety disorder. 8. Paroxysmal atrial fibrillation. 9. Renal insufficiency. 10. Recent fracture of left foot. 11. Polysubstance abuse. 12. Tricuspid regurgitation. 13. Status post left cerebrovascular accident. PLAN 1. Full dose Lovenox. 2. Sputum Gram stain, culture and sensitivity. Unit #: [id number] #: [id number] Patient: MAX CORLEY 3. Urine for Legionella and streptococcal antigens. 4. Hold Lasix and potassium. 5. Change Zantac to Pepcid IV. 6. IV Solu-Medrol. 7. IV fluids. 8. Decrease Lopressor if blood pressure continues low, will otherwise keep it on for heart rate control. 9. Consult pulmonary services. 10. Urinalysis with C and S. 11. Daily ProTime and BMP. 12. DuoNebs. 13. Resume other home meds as mentioned above. 14. Further evaluation pending results of the above treatment and lab values. Dictated by Christiano Villalobos M.D. STEVIE/josué TD: 03/22/2017 17:38 JOB #: [id number] HISTORY AND PHYSICAL Page 1 of 1 X Christiano Villalobos MD X HISTORY AND PHYSICAL
--- NOTE | ~2017-03-22 | CR72 ---
[facility] A Service [facility] RADIOLOGY TEXT RESULTS PATIENT: MAX CORLEY LOCATION: [facility] : 71 UNIT #: [id number] AGE: [address]: Christiano Villalobos MD SEX: F ORDER DR: [id number] [address] [id number] [facility]. [place], [place] [address] [id number] MR#: [id number] Acc #: [id number] NAME: MAX CORLEY : 1970 SEX: F STUDY DATE/TIME: 03/22/2017 9:44 UNIT: [facility] ROOM: STUDY DESCRIPTION: CR Chest Single View Portable Attending Physician: Ashok Salinas M.D. Ordering Physician: Jerson Pang M.D. Primary Care Physician: Cr Whitfield M.D. MEDICAL IMAGING REPORT This report is preliminary unless electronic signature is present EXAM Portable chest, 03/22/17 HISTORY Shortness of breath, cough and congestion over the past 3 days. COMPARISON STUDIES 01/01/17 TECHNIQUE A single AP view of the chest was obtained. FINDINGS The heart and mediastinum are stable with postoperative changes of valve replacement noted. Both lungs are clear with normal vascular markings and no pleural fluid is seen. IMPRESSION No active disease. No change from the previous exam. Dictated by... Cr Whitman M.D. THIS IS AN ELECTRONICALLY VERIFIED REPORT Cr Whitman M.D. at 03/22/2017 3:46 PM RLF/nancy TD: 03/22/2017 13:04 JOB #: [id number] [facility] A Service [facility] RADIOLOGY TEXT RESULTS PATIENT: MAX CORLEY LOCATION: [facility] : 71 UNIT #: [id number] AGE: [address]: Christiano Villalobos MD SEX: F ORDER DR: MEDICAL IMAGING REPORT Page 1 of 1 COPY
--- NOTE | ~2017-03-22 | CO ---
Unit #: [id number] #: [id number] Patient: MAX CORLEY [id number] [address] [place], [place] [address] [id number] I MR#: [id number] NAME: MAX CORLEY. ROOM: 575 Age: 46 Sex: F Admission Date: 03/22/2017 : 1970 Attending Physician: Christiano Villalobos M.D. Primary Care Physician: Cr Whitfield M.D. Consultation Date: 03/23/2017 CONSULTATION REPORT REASON FOR CONSULTATION Abnormal CT scan. HISTORY OF PRESENT ILLNESS A 46-year-old female who states she has a history of asthma but is not on any type of controlling medications. She will have "colds" multiple times a year. When that occurs she will intensely wheeze and often require hospitalization. She has had a several day history of wheezing which worsened three days ago. She had more intense wheezing, shortness of breath and nonproductive cough and presented to the emergency room. Chest x-ray was unremarkable but a CT scan revealed faint patchy bilateral ground-glass opacities. She has been admitted to the hospital, does not feel a whole lot better. Of note, the ER face sheet said her room air sats were 97%. PAST MEDICAL HISTORY Past medical history is remarkable for asthma, I suspect some degree of COPD, history of mitral valve replacement, lupus anticoagulant antibodies, major depressive disorder, anxiety disorder, recent fracture right leg, diastolic dysfunction, hypertension, polysubstance abuse, apparently had a remote CVA secondary to mitral valve thrombus. HOME MEDICATIONS She takes as needed albuterol. She is on Coumadin, Lasix, potassium, Neurontin, metoprolol, Seroquel, Effexor, [place], Vistaril and Zantac. ALLERGIES Amoxicillin, unknown reaction. SOCIAL HISTORY It is fairly apparent that she misrepresents how much she smokes and if she does any other drugs. She told me she did not do any recreational drugs and I asked specifically about marijuana and she said no although her tox screen is positive for marijuana. She stated that she smokes three cigarettes a day but when I asked her about dosing for a nicotine patch she smokes at least half a pack of cigarettes a day. She does not work. She is disabled. She tells me she has no hobbies and she has been around no inhaled irritants. FAMILY HISTORY No definite familial lung disease. REVIEW OF SYSTEMS Unit #: [id number] #: [id number] Patient: MAX CORLEY Mild nausea. No vomiting, no hematuria or dysuria, melena or hematochezia. She has leg pain from her fracture. No unexplained leg pain or swelling. No fever or chills. No choking or coughing with swallowing. Further review of systems negative. PHYSICAL EXAMINATION GENERAL APPEARANCE: Examination reveals a patient who is in no acute distress. VITAL SIGNS: She is afebrile. Pulse is 97. Respiratory rate is 18. Blood pressure 123/80. 5 foot 6, 170 pounds. BMI is 27. HEENT: Pupils equal, round and reactive to light. Sclerae anicteric. Head atraumatic. She is edentulous with dentures in place. NECK: Supple. No supraclavicular or cervical adenopathy appreciated. CHEST: Tight expiratory wheeze. Scattered rhonchi. No consolidation. CARDIAC: Examination reveals a regular rate and rhythm. Soft murmur. No gallop noted. ABDOMEN: Soft, nontender. No hepatomegaly or rebound. EXTREMITIES: Reveal no cyanosis, clubbing or edema. No calf tenderness. Her right leg was tender from her fracture. NEUROLOGIC: Grossly intact. No focal muscular or sensory deficits. DIAGNOSTIC STUDIES LABORATORY EXAMINATION: BUN is 23, creatinine is 1.0, blood sugar was 278, BNP 133, procalcitonin 1.64, INR is normal. Cardiac enzymes negative. CBC normal. Legionella and Strep pneumoniae antigens negative. Tox screen positive for marijuana, opiates and TCA. Urinalysis glucosuria, 1+ blood, but only 2 to 5 red cells and no significant pyuria. Blood cultures performed and are no growth so far. No sputum has been collected. No urine was collected. IMAGING: CT scan: Patchy ground-glass opacities. CARDIOVASCULAR: Rhythm strips sinus. IMPRESSION 1. Abnormal CT scan, suspect atypical pneumonia. 2. History of asthma versus chronic obstructive pulmonary disease. 3. Wheezing consistent with airways disease. 4. Tobacco use. 5. Marijuana use. 6. Tissue mitral valve replacement. 7. Lupus anticoagulant, on Coumadin with normal INR, suspect noncompliant. 8. Medical problems listed above. PLAN Agree with Isai. Will check a respiratory pathogen panel; unfortunately at this institution it may take days for it to return but still may be beneficial, particularly given her multiple repeated hospitalizations. IV steroids have been started and I agree. I will add inhaled corticosteroids and I have discussed with her how she would benefit from some type of controlling inhaled medication on a scheduled basis. I have offered her a nicotine patch and no smoking and she agrees. Thank you very much for allowing me to participate in the care of this patient. Unit #: [id number] #: [id number] Patient: MAX CORLEY Dictated by... Isaiah Rodriguez M.D. WOL/cf TD: 03/24/2017 14:11 JOB #: [id number] CONSULTATION REPORT Page 1 of 1 X Isaiah Rodriguez MD X CONSULTATION REPORT
[2017-03-22] MEDS ORDERED: HYDROCODON-ACE1 EAC9 PO (09:26)
[2017-03-22 10:11] LABS: BASOPHIL# 0.1 X10e3 (0-0.3); BASOPHIL% 1.6 % (0-2.5); EOSINOPHIL# 0.3 X10e3 (0-0.7); EOSINOPHIL% 3.2 % (0.0-7.0); HEMATOCRIT 42.6 % (35.0-45.0); HEMOGLOBIN 14.4 gm/dL (12.0-16.0); LYMPHOCYTE# 2.5 X10e3 (1.0-3.5); LYMPHOCYTE% 32.1 % (17.0-45.0); MEAN CELL VOLUME 92.3 FL (83-96); MEAN CORPUSCULAR HEMOGLOBIN 31.1 PG (28-34); MEAN CORPUSCULAR HGB CONC 33.7 g/dL (30-36); MEAN PLATELET VOLUME 7.6 FL (6.5-11.5); MONOCYTE# 1.1 X10e3 (0-1.0); MONOCYTE% 13.7 % (3.0-12.0); NEUTROPHIL# 3.9 X10e3 (1.5-7.1); NEUTROPHIL% 49.4 % (40-75); PLATELET COUNT 284 X10e3 (140-420); RED BLOOD COUNT 4.62 X10e (3.90-5.30); RED CELL DISTRIBUTION WIDTH 14.3 % (11.0-15.5); WHITE BLOOD COUNT 7.9 X10e3 (4.0-10.5)
[2017-03-22 10:15] LABS: DIFF IND NO
[2017-03-22 10:24] LABS: PARTIAL THROMBOPLASTIN TIME 31.7 SECONDS (23.5-31.3); PROTHROMBIN TIME (PATIENT) 10.7 SECONDS (9.6-11.5)
[2017-03-22 10:49] LABS: ALBUMIN SERUM 4.3 g/dL (3.5-5.0); BILIRUBIN, DIRECT 0.1 mg/dL (0.0-0.2); BILIRUBIN,INDIRECT 0.9 mg/dL (0.0-0.9); BUN/CREATININE RATIO 14.16; CALCIUM SERUM 9.8 mg/dL (8.4-10.2); CREATININE SERUM 1.2 mg/dL (0.6-1.4); GLOM FILT RATE Estimated 54.5 mL/min (>60); POTASSIUM 3.8 mmol/L (3.5-5.1); PROTEIN TOTAL SERUM 7.2 g/dL (6.0-8.3)
[2017-03-22] MEDS ORDERED: ZANTAC150 MG PO (11:07)
[2017-03-22] MEDS ORDERED: HYDROXYZINE HCL50 MG PO (11:07)
[2017-03-22] MEDS ORDERED: PATIENT'S PHARMACY (11:11)
[2017-03-22 11:15] LABS: POC - CKMB <1.0 ng/mL (0.0-7.9); POC - TROPONIN <0.05 ng/mL (<=0.05)
[2017-03-22 12:09] LABS: POC - CKMB <1.0 ng/mL (0.0-7.9); POC - TROPONIN <0.05 ng/mL (<=0.05)
[2017-03-22 13:22] LABS: AMPHETAMINE NEG (NEG); BARBITURATES NEG (NEG); BENZODIAZEPINES NEG (NEG); COCAINE NEG (NEG); MARIJUANA POS (NEG); OPIATES POS (NEG); TRICYCLIC ANTIDEPRESSANTS POS (NEG); U METHADONE NEG (NEG)
[2017-03-23 05:49] LABS: URINE APPEARANCE CLEAR; URINE BILIRUBIN NEG (NEG); URINE BLOOD 1+ (NEG); URINE COLOR YELLOW; URINE GLUCOSE 250 MG/DL (NEG); URINE KETONE NEG (NEG); URINE LEUKOCYTE ESTERASE NEG (NEG); URINE NITRATE NEG (NEG); URINE PROTEIN NEG (NEG); URINE SPECIFIC GRAVITY 1.027 (1.003-1.035); URINE UROBILINOGEN 0.2 MG/DL (NEG)
[2017-03-23 05:52] LABS: URINE BACTERIA AUWI NEG (NEGATIVE); URINE SQUAMOUS EPITHELIAL CELL NONE SEEN /[HPF]; UWBCS1 AUWI 0-2 (0-5)
[2017-03-23 07:45] LABS: INR 1.1; PROTHROMBIN TIME (PATIENT) 11.9 SECONDS (9.6-11.5)
[2017-03-23 07:50] LABS: CALCIUM SERUM 9.3 mg/dL (8.4-10.2)
[2017-03-23 11:00] LABS: LEGIONELLA AG URINE NEG (NEG)
[2017-03-24 08:24] LABS: BUN/CREATININE RATIO 21.25; CALCIUM SERUM 8.8 mg/dL (8.4-10.2); CREATININE SERUM 0.8 mg/dL (0.6-1.4); GLOM FILT RATE Estimated 89.1 mL/min (>60)
[2017-03-24 14:43] LABS: INR 1.1
[2017-03-25 07:57] LABS: HEMATOCRIT 33.8 % (35.0-45.0); HEMOGLOBIN 10.9 gm/dL (12.0-16.0); MEAN CELL VOLUME 94.2 FL (83-96); MEAN CORPUSCULAR HEMOGLOBIN 30.5 PG (28-34); MEAN CORPUSCULAR HGB CONC 32.3 g/dL (30-36); MEAN PLATELET VOLUME 7.6 FL (6.5-11.5); RED BLOOD COUNT 3.58 X10e (3.90-5.30); WHITE BLOOD COUNT 21.1 X10e3 (4.0-10.5)
[2017-03-25 08:06] LABS: INR 1.3; PROTHROMBIN TIME (PATIENT) 13.9 SECONDS (9.6-11.5)
[2017-03-25 08:15] LABS: BUN/CREATININE RATIO 25.55; CALCIUM SERUM 9.2 mg/dL (8.4-10.2); CREATININE SERUM 0.9 mg/dL (0.6-1.4); GLOM FILT RATE Estimated 77.3 mL/min (>60)
[2017-03-26 06:26] LABS: INR 1.4; PROTHROMBIN TIME (PATIENT) 14.9 SECONDS (9.6-11.5)
[2017-03-26 06:28] LABS: BUN/CREATININE RATIO 33.75; CREATININE SERUM 0.8 mg/dL (0.6-1.4); GLOM FILT RATE Estimated 89.1 mL/min (>60); POTASSIUM 3.7 mmol/L (3.5-5.1)
[2017-03-26] MEDS ORDERED: PREDNISONE PO (09:41)
[2017-03-26] MEDS ORDERED: NORVASC PO (09:42)
[2017-03-26] MEDS ORDERED: DULERA 200 MCG/13 GM INH (09:42)
[2017-03-26] MEDS ORDERED: NON-ASPIRIN 8650 MG PO (09:43)
[2017-03-26] MEDS ORDERED: COMBIVENT U/D3 M2 INH (09:44)
[2017-03-26] MEDS ORDERED: LEVAQUIN750 MG PO (09:45)
== END 2017-03-26 11:47 | disposition home or self-care (01) | DRG 194 ==
LOC: CED 09:24 → C5C 13:28 → CED 13:38 → CEDOF 13:38 → C5C 17:54
PROVIDERS: Emergency Medicine; Internal Medicine
DX: J18.9 Pneumonia, unspecified organism (principal); D68.62 Lupus anticoagulant syndrome; F17.210 Nicotine dependence, cigarettes, uncomplicated; Z95.4 Presence of other heart-valve replacement; F32.9 Major depressive disorder, single episode, unspecified; F41.1 Generalized anxiety disorder; I48.0 Paroxysmal atrial fibrillation; Z79.01 Long term (current) use of anticoagulants; N28.9 Disorder of kidney and ureter, unspecified; R73.9 Hyperglycemia, unspecified; S92.901D Unspecified fracture of right foot, subsequent encounter for fracture with routine healing; X58.XXXD Exposure to other specified factors, subsequent encounter; F19.10 Other psychoactive substance abuse, uncomplicated; I07.1 Rheumatic tricuspid insufficiency; Z88.1 Allergy status to other antibiotic agents; F12.90 Cannabis use, unspecified, uncomplicated; Z86.73 Personal history of transient ischemic attack (TIA), and cerebral infarction without residual deficits; Z98.51 Tubal ligation status
CPT/HCPCS: 36415; 71010; 71020; 71275; 80048; 80076; 80307; 81003; 82308; 82550; 82553; 82947; 83036; 83605; 83880; 84484; 85025; 85027; 85610; 85730; 87040; 87070; 87205; 87449; 87633; 87899; 93005; 94640; 94664; 94760; 94761; 96374; 96375; 99285; J1650; J1815; J1956; J2405; J2550; J2930; Q9967